=== PATIENT | female | born 1945 | race Caucasian/White ===

== ENCOUNTER 2017-11-21 10:43 | Day surgery (SDC) | payer OTHER ==
[2017-11-17 17:24] VITALS: BMI 27.6
[2017-11-21 11:13] VITALS: TEMP 98.2
[2017-11-21] MEDS ORDERED: PROPOFOL 20 ML ONE ×2 (11:17)
[2017-11-21 14:49] VITALS: BP 116/53; PULSE 74
--- NOTE | 2017-11-23 15:38 | PATH ---
Surgical Pathology Report Patient Name: AMADO GAMING [facility]. Rec. #: [id number] /Age/Gender: 1945 (Age: 72) / F Account: [id number] Location: [facility]-ENDOSCOPY Taken: 11/21/2017 Received: 11/21/2017 Reported: 11/23/2017 Physicians: Jamin Farias M.D. Specimen(s) Received A: BX DUODENUM B: BX ANTRUM Clinical History Preoperative diagnosis: GERD, rule out colon cancer Postoperative diagnosis: Rule out celiac disease, gastritis Final Diagnosis A. DUODENUM, BIOPSY: DUODENAL MUCOSA WITH NO PATHOLOGIC FINDINGS. Note: Features suggestive of celiac disease are not identified in this biopsy. B. ANTRUM, BIOPSY: MILD CHRONIC GASTRITIS. IMMUNOSTAIN IS NEGATIVE FOR H. PYLORI ORGANISMS. Electronically Signed Lupe Mary M.D. Gross Description A. Received in formalin, labeled "duodenum" are 4 cuevas, irregular portions of soft tissue ranging from 0.2-0.4 cm. in greatest dimension. The specimens are submitted in toto in one cassette. B. Received in formalin, labeled "antrum" are 2 cuevas, irregular portions of soft tissue measuring 0.3 and 0.4 cm. in greatest dimension. The specimens are submitted in toto in one cassette. 11/22/201711/22/2017
== END 2017-11-21 14:10 | disposition home or self-care (01) ==
LOC: FASU-ENDO 10:43
PROVIDERS: ATTEND Internal Medicine Gastroenterology
PROC: 0DB68ZX Excision of Stomach, Via Natural or Artificial Opening Endoscopic, Diagnostic (ICD-10-PCS; 2017-11-21)
PROC: 0DJD8ZZ Inspection of Lower Intestinal Tract, Via Natural or Artificial Opening Endoscopic (ICD-10-PCS; principal; 2017-11-21 12:59)
PROC: 0DB98ZX Excision of Duodenum, Via Natural or Artificial Opening Endoscopic, Diagnostic (ICD-10-PCS; 2017-11-21 12:59)
DX: Z12.11 Encounter for screening for malignant neoplasm of colon (principal); K57.30 Diverticulosis of large intestine without perforation or abscess without bleeding; K29.50 Unspecified chronic gastritis without bleeding
CPT/HCPCS: 43239; G0121; 82962